=== PATIENT | female | born 1995 | race Caucasian/White ===

== ENCOUNTER 2016-07-18 20:13 | Emergency (ER) | payer OTHER ==
[~2016-07-18] VITALS: Ht 165.1 cm; Wt 130.9 kg
[~2016-07-18 20:13] MED LIST: DULO60CA44 PO; TOPI100T20 PO; TOPI50TA16 PO; TRAM-10 PO
[2016-07-18 20:15] VITALS: TEMP 37.2; Ht 165.1 cm; Wt 130.9 kg
--- NOTE | 2016-07-18 21:30 | EMERGENCY ROOM VISIT NOTE ---
History Report prepared by Lizet: Ambar Medina Under the Supervision of: Dr. Eloy Selby M.D. First contact with patient: 21:17 Chief Complaint: RECTAL BLEEDING Stated Complaint: RECENT RECTAL BLEEDING Nursing Triage Summary: Patient c/o of rectal bleeding, abdominal pain and shortness of breath today at 8 pm. Abdominal pain and shortness of breath resolved prior to arrival. Hx of kidney stones. History of Present Illness The patient is a 20 year old female who presents to the Emergency Room with complaints of rectal bleeding occurring 1 hour [employer]. The patient states that when having a bowel movement she states she saw bright red blood. The patient states that she then had SOB and right sided abdominal pain. She states she also was experiencing dizziness. She states that her SOB and abdominal pain have resolved prior to arriving at the ED. The patient states that she has no history of hemorrhoids and has never had rectal bleeding in the past. The patient states that it was concerning because before the bleeding began she was not experiencing any pain. The patient denies any chance of and states that she has normal menstrual periods. Source of History: patient Onset: 1 hour [employer] Position: other (rectal) Quality: other (bright red) Associated Symptoms: + SOB, + abdominal pain Note: Associated symptoms: dizziness. Review of Systems All systems have been listed, reviewed, and are negative other than those previously mentioned. Please see Additional Medical History Sheet. Past Medical & Surgical Medical Problems: (1) Depression (2) Kidney stones Family History Heart disease Hypertension Kidney disease Kidney stones Social History Smoking Status: Never Smoker Smokeless Tobacco Use: No Alcohol Use: none Drug Use: none Marital Status: single Occupation Status: student Current/Historical Medications Scheduled Control Pills ( Control Pills), 1 TAB PO DAILY Allergies Coded Allergies: No Known Allergies (Unverified , 03/25/12) Physical Exam Vital Signs Date Time Temp Pulse Resp B/P Pulse Ox O2 Delivery O2 Flow Rate FiO2 07/18/16 23:09 90 18 120/82 98 Room Air 07/18/16 22:08 68 20 125/80 98 Room Air 07/18/16 21:27 79 07/18/16 20:15 37.2 88 18 146/96 100 Room Air Physical Exam GENERAL: Patient awake, alert, oriented x 3. Patient follows commands. Patient does not appear toxic. Patient is adequately hydrated and well- nourished. SKIN: No erythema, pallor, cyanosis or rash HEENT: Normal head, pupils equal, reactive to light and accommodation. Ears normal. Oral cavity and posterior pharynx appear normal. Neck: Without adenopathy, no neck vein distention. LUNGS: Clear to auscultation. No wheezes, no rales, no rhonchi. HEART: No murmurs. No gallops. No rubs ABDOMEN: No masses, no rebound, no hepatomegaly or splenomegaly. Obese. EXTREMITIES: No signs of trauma. No pedal or pretibial edema. No calf or thigh tenderness. NEUROLOGIC: Cranial nerves II-XII within normal limits. No gross motor sensory function deficits. RECTAL: Done in the presence of a female nurse physician ophthalmologist. No hemorrhoids, no masses, no stool. Medical Decision & Procedures Laboratory Results 07/18/16 22:04 07/18/16 22:04 Test 07/18/16 22:04 Red Blood Count 4.34 M/uL (4.2-5.4) Mean Corpuscular Volume 83.6 fL (80-100) Mean Corpuscular Hemoglobin 28.6 pg (25-34) Mean Corpuscular Hemoglobin Concent 34.2 g/dl (32-36) RDW Standard Deviation 41.9 fL (36.4-46.3) RDW Coefficient of Variation 13.6 % (11.5-14.5) Mean Platelet Volume 9.7 fL (7.4-10.4) Anion Gap 9.0 mmol/L (3-11) Est Creatinine Clear Calc Drug Dose 197.8 ml/min Estimated GFR () > 150.0 Estimated GFR (Non- 129.8 BUN/Creatinine Ratio 15.5 (10-20) Calcium Level 8.5 mg/dl (8.5-10.1) Laboratory results as stated above per my review. ED Course 2117: Past medical records reviewed. The patient was evaluated in room A2. A complete history and physical examination was performed. 2154: Upon reevaluation, the patient appeared to have improvement of her symptoms. I discussed today's findings with her. She verbalized agreement of the treatment plan. The patient was discharged home. Medical Decision Nurses notes reviewed. Medical history sheet reviewed. Differential diagnosis includes but is not limited to: hemorrhoids external/internal, fissure, rectal bleed, anemia, hyperventilation. Labs were obtained. Please see above. The patient is not anemic. Rectal exam revealed no blood. I believe the patient did have some bright red blood which resulted in her becoming anxious and hyperventilated. The patient has been stable and asymptomatic while here in the ED. I believe that she can safely return home. She is to use some Preparation H if she has any problem in the rectal area. She is to follow-up with her family physician within the next 2 weeks. Impression Primary Impression: Rectal bleed Additional Impression: Anxiety Scribe Attestation The scribe's documentation has been prepared under my direction and personally reviewed by me in its entirety. I confirm that the note above accurately reflects all work, treatment, procedures, and medical decision making performed by me. Departure Information Dispostion Home / Self-Care Referrals No Doctor, Assigned (PCP) Forms HOME CARE DOCUMENTATION FORM, IMPORTANT VISIT INFORMATION, WORK / SCHOOL INSTRUCTIONS Patient Instructions My [facility] Additional Instructions Follow-up with your family physician within the next 2 weeks. You may use Preparation H or Anusol if you have any rectal pain. Problem Qualifiers
[2016-07-18] MEDS ORDERED: BCPILLS PO (21:49)
[2016-07-18 22:12] LABS: HEMATOCRIT 36.3 % (37-47); MEAN CELL VOLUME 83.6 fL (80-100); MEAN CORPUSCULAR HEMOGLOBIN 28.6 pg (25-34); MEAN CORPUSCULAR HGB CONC 34.2 g/dl (32-36); MEAN PLATELET VOLUME 9.7 fL (7.4-10.4); PLATELET COUNT 259 K/uL (130-400); RED BLOOD COUNT 4.34 M/uL (4.2-5.4); WHITE BLOOD COUNT 7.66 K/uL (4.8-10.8)
[2016-07-18 22:33] LABS: BLOOD UREA NITROGEN 10 mg/dl (7-18); BUN/CREATININE RATIO 15.5 (10-20); CALCIUM 8.5 mg/dl (8.5-10.1); CARBON DIOXIDE 24 mmol/L (21-32); CHLORIDE 108 mmol/L (98-107); CREATININE 0.62 mg/dl (0.60-1.20); GLUCOSE 78 mg/dl (70-99); POTASSIUM 4.1 mmol/L (3.5-5.1); SODIUM 141 mmol/L (136-145)
[2016-07-18 23:09] VITALS: BP 120/82; PULSE 90; O2SAT 98
== END 2016-07-18 23:09 | disposition home or self-care (01) ==
LOC: C.EDB 20:14 → C.EDA 23:09
DX: K62.5 Hemorrhage of anus and rectum (principal); F41.9 Anxiety disorder, unspecified; F32.9 Major depressive disorder, single episode, unspecified

== ENCOUNTER → 2016-08-01 | Outpatient (CLI) | payer OTHER ==
[~2016-08-01] MED LIST changes: +BCPILLS PO; -DULO60CA44 PO; -TOPI100T20 PO; -TOPI50TA16 PO; -TRAM-10 PO
== END | disposition home or self-care (01) ==
LOC: C.PAPS 09:07
PROVIDERS: ATTEND Obstetrics & Gynecology
DX: Z12.4 Encounter for screening for malignant neoplasm of cervix (principal); R87.610 Atypical squamous cells of undetermined significance on cytologic smear of cervix (ASC-US)

== ENCOUNTER → 2017-08-13 | Outpatient (CLI) | payer OTHER | END | disposition home or self-care (01) | LOC: C.PAPS 11:35 | PROVIDERS: ATTEND Physician Assistant | DX: Z12.4 Encounter for screening for malignant neoplasm of cervix (principal); R87.612 Low grade squamous intraepithelial lesion on cytologic smear of cervix (LGSIL) ==

== ENCOUNTER → 2017-08-13 | Outpatient (CLI) | payer OTHER | END | disposition home or self-care (01) | LOC: C.LABSPEC 17:36 | PROVIDERS: ATTEND Physician Assistant | DX: Z12.4 Encounter for screening for malignant neoplasm of cervix (principal) ==

== ENCOUNTER 2023-09-01 14:16 | Inpatient (IN) ==
--- NOTE | 2023-09-01 14:45 | Emergency Department Note ---
History of Present Illness General Chief complaint: Ankle Pain Stated complaint: ANKLE PAIN Time Seen by Provider: 09/01/23 14:33 History of Present Illness Maximum Pain Intensity: 6 This is a 28-year-old female that presents to the emergency department via ambulance with complaints of "right ankle pain". Patient states that just prior to arrival she was ambulating on a ramp, slipped and injured the right ankle. She denies any other areas of pain or injury beyond the right ankle. She notes open injury to the ankle. Per EMS and route she received 2 g of IV Ancef, 400 mL of IV normal saline, 2 mcg of fentanyl, and 4 mg of Zofran. Patient notes right ankle pain. No tingling. She notes perhaps a tiny bit of numbness but otherwise able to feel the entire foot and all toes. She rates her current pain as a 6/10. Patient denies chance of . Home Medications Medication Instructions Recorded Confirmed Type aripiprazole 2 mg tablet 2 mg PO HS 09/01/23 09/01/23 History atenolol 50 mg tablet 50 mg PO HS 09/01/23 09/01/23 History fluoxetine 20 mg capsule 60 mg PO HS 09/01/23 09/01/23 History lisinopril 5 mg tablet 5 mg PO HS 09/01/23 09/01/23 History Allergies Allergy/AdvReac Type Severity Reaction Status Date / Time No Known Allergies Allergy Unknown Verified 09/01/23 17:35 Past Med/Surg History Social History (Updated 09/01/23 @ 18:01 by Natali Quiroga PA-C) Smoking Status: Current some day smoker Tobacco Type: E-cigarettes / Vaping Hx Substance Use: No Feels Safe at Home: Yes Review of Systems A total of 10 systems reviewed and were otherwise negative Physical Exam Vital Signs Vital Signs - 24 hr 09/01/23 14:05 09/01/23 14:05 09/01/23 15:06 Temperature 36.6 C Temperature Source Oral Pulse Rate 90 90 Pulse Rate [Right Finger] Pulse Rhythm [Right Finger] Pulse Strength [Right Finger] Respiratory Rate 20 Respiratory Effort / Characteristics Non-Labored Spontaneous Non-Labored Spontaneous Respiratory Depth Normal Normal Respiratory Pattern Blood Pressure 148/61 H Blood Pressure [Right Arm] Blood Pressure Mean 90 Blood Pressure Mean [Right Arm] Blood Pressure Position [Right Arm] Pulse Oximetry 99 Oxygen Delivery Method Room Air Oxygen Flow Rate Sepsis New/Unexplained Change in Mental Status No Sepsis Action Taken by Nursing No Action Required End Tidal CO2 (18-54mmHg) 09/01/23 15:34 09/01/23 16:26 09/01/23 16:33 Temperature Temperature Source Pulse Rate 98 H 100 H Pulse Rate [Right Finger] 96 H Pulse Rhythm [Right Finger] Pulse Strength [Right Finger] Respiratory Rate 16 17 16 Respiratory Effort / Characteristics Non-Labored Non-Labored Spontaneous Non-Labored Spontaneous Normal for Patient Respiratory Depth Normal Normal Normal Respiratory Pattern Regular Regular Blood Pressure Blood Pressure [Right Arm] 136/68 154/91 H Blood Pressure Mean Blood Pressure Mean [Right Arm] 90 Blood Pressure Position [Right Arm] Pulse Oximetry 98 98 98 Oxygen Delivery Method Room Air Nasal Cannula Nasal Cannula Oxygen Flow Rate 4 4 Sepsis New/Unexplained Change in Mental Status Sepsis Action Taken by Nursing End Tidal CO2 (18-54mmHg) 34 34 09/01/23 16:34 09/01/23 16:35 09/01/23 16:39 Temperature Temperature Source Pulse Rate 102 H 106 H 102 H Pulse Rate [Right Finger] Pulse Rhythm [Right Finger] Pulse Strength [Right Finger] Respiratory Rate 16 16 16 Respiratory Effort / Characteristics Non-Labored Spontaneous Non-Labored Spontaneous Non-Labored Spontaneous Respiratory Depth Normal Normal Normal Respiratory Pattern Regular Regular Regular Blood Pressure Blood Pressure [Right Arm] 150/87 H Blood Pressure Mean Blood Pressure Mean [Right Arm] Blood Pressure Position [Right Arm] Pulse Oximetry 98 98 98 Oxygen Delivery Method Nasal Cannula Nasal Cannula Nasal Cannula Oxygen Flow Rate 4 4 4 Sepsis New/Unexplained Change in Mental Status Sepsis Action Taken by Nursing End Tidal CO2 (18-54mmHg) 36 36 36 09/01/23 16:40 09/01/23 16:45 09/01/23 16:50 Temperature Temperature Source Pulse Rate 99 H 100 H 97 H Pulse Rate [Right Finger] Pulse Rhythm [Right Finger] Pulse Strength [Right Finger] Respiratory Rate 16 16 16 Respiratory Effort / Characteristics Non-Labored Spontaneous Non-Labored Spontaneous Non-Labored Spontaneous Respiratory Depth Normal Normal Normal Respiratory Pattern Regular Regular Regular Blood Pressure Blood Pressure [Right Arm] 145/93 H 179/77 H 176/78 H Blood Pressure Mean Blood Pressure Mean [Right Arm] Blood Pressure Position [Right Arm] Pulse Oximetry 98 99 99 Oxygen Delivery Method Nasal Cannula Nasal Cannula Nasal Cannula Oxygen Flow Rate 4 4 4 Sepsis New/Unexplained Change in Mental Status Sepsis Action Taken by Nursing End Tidal CO2 (18-54mmHg) 35 36 32 09/01/23 17:09 09/01/23 17:30 09/01/23 17:47 Temperature Temperature Source Pulse Rate 98 H 102 H Pulse Rate [Right Finger] 102 H Pulse Rhythm [Right Finger] Pulse Strength [Right Finger] Respiratory Rate 16 16 16 Respiratory Effort / Characteristics Non-Labored Spontaneous Non-Labored Spontaneous Non-Labored Spontaneous Respiratory Depth Normal Normal Normal Respiratory Pattern Regular Regular Blood Pressure Blood Pressure [Right Arm] 145/77 H 142/82 H 143/94 H Blood Pressure Mean Blood Pressure Mean [Right Arm] 110 Blood Pressure Position [Right Arm] Pulse Oximetry 99 99 95 Oxygen Delivery Method Room Air Room Air Room Air Oxygen Flow Rate 0 0 Sepsis New/Unexplained Change in Mental Status Sepsis Action Taken by Nursing End Tidal CO2 (18-54mmHg) 09/01/23 18:23 09/01/23 18:25 Temperature 37.9 C H Temperature Source Oral Pulse Rate Pulse Rate [Right Finger] 111 H Pulse Rhythm [Right Finger] Regular Pulse Strength [Right Finger] Normal Respiratory Rate 26 H Respiratory Effort / Characteristics Non-Labored Spontaneous Respiratory Depth Normal Respiratory Pattern Regular Blood Pressure Blood Pressure [Right Arm] 135/82 Blood Pressure Mean Blood Pressure Mean [Right Arm] 99 Blood Pressure Position [Right Arm] Semi-fowlers Pulse Oximetry 97 Oxygen Delivery Method Room Air Room Air Oxygen Flow Rate Sepsis New/Unexplained Change in Mental Status Sepsis Action Taken by Nursing End Tidal CO2 (18-54mmHg) VITAL SIGNS - Vital signs and nursing notes were reviewed. Stable and afebrile. GENERAL -28-year-old female appearing her stated age who is in no acute distress. Communicates well with provider and answers questions appropriately. SKIN -there is a break in the integument to the right medial ankle region measuring approximately 3 cm x 2 cm consistent with open fracture. Small amount of bleeding noted. There is right ankle deformity with the distal tibial region medially displaced with the right foot being laterally displaced. HEAD - NC/AT. EYES - PERRL with EOMI bilaterally. no hyphema. No subconjunctival hemorrhage EARS - No deformities of external structures noted on gross examination bilaterally. No hemotympanum. NOSE - Midline and without cyanosis. No epistaxis or purulent drainage noted. MOUTH/OROPHARYNX - Without perioral cyanosis. NECK - Neck with FROM. No nuchal rigidity. LUNGS - CTA CARDIAC - RRR EXTREMITIES - No clubbing or peripheral cyanosis. No pretibial edema. Skin as above with associated open fracture and deformity of the right ankle. The right dorsalis pedis pulse is within normal limits. Cap refill of all toes of the right foot within normal limits. Patient able to actively flex and extend all toes of the right foot. NEUROLOGIC - Cranial nerves II through XII grossly intact. Patient is sensory intact to light touch throughout the right foot and all toes. No neurovascular deficits. PSYCH -alert, oriented and pleasant on exam Course Administered Medications Discontinued Medications Diphtheria/Pertussis/Tetanus Vacc (Diphther/Tetan/Pertus Vaccine (Tdap, Adol/Adult) 0.5ml) 0.5 ml IM .ONCE ONE Stop: 09/01/23 14:56 Last Admin: 09/01/23 15:05 Dose: 0.5 ml Documented By: CHINO Fentanyl Citrate (Fentanyl Citrate Pf 100 Mcg/2 Ml Vial) 50 mcg IV NOW STA Stop: 09/01/23 14:38 Last Admin: 09/01/23 15:06 Dose: 50 mcg Documented By: CHINO Fentanyl Citrate (Fentanyl Citrate Pf 100 Mcg/2 Ml Vial) 100 mcg IV NOW ONE Stop: 09/01/23 16:46 Last Admin: 09/01/23 16:39 Dose: 100 mcg Documented By: NIKHIL Fentanyl Citrate (Fentanyl Citrate Pf 100 Mcg/2 Ml Vial) 50 mcg IV NOW STA Stop: 09/01/23 17:56 Last Admin: 09/01/23 18:02 Dose: 50 mcg Documented By: NIKHIL Propofol (Propofol Iv Emulsion 10 Mg/Ml 20 Ml Vial) Confirm Administered Dose 200 mg IV .STK-MED ONE Stop: 09/01/23 16:21 Last Admin: 09/01/23 17:20 Dose: Not Given Documented By: NIKHIL Propofol (Propofol Iv Emulsion 10 Mg/Ml 20 Ml Vial) Confirm Administered Dose 200 mg IV .STK-MED ONE Stop: 09/01/23 16:35 Last Admin: 09/01/23 16:33 Dose: 130 mg Documented By: NIKHIL Co-signed By: EDU Medical Decision Making Laboratory Data 09/01/23 15:10 09/01/23 15:10 Lab Results 09/01/23 09/01/23 Range/Units 15:10 16:05 WBC 11.79 H (4.8-10.8) K/ul RBC 4.32 (4.20-5.40) M/uL Hgb 11.5 L (12.0-16.0) g/dl Hct 36.4 L (37.0-47.0) % MCV 84.3 (80.0-100.0) fL MCH 26.6 (25.0-34.0) pg MCHC 31.6 L (32.0-36.0) g/dL RDW Std Deviation 44.3 (36.4-46.3) fL RDW Coeff of [place] 14.6 H (11.5-14.5) % Plt Count 298 (130-400) K/uL MPV 9.2 L (9.4-12.4) fL Immature Gran % (Auto) 0.4 % Neut % (Auto) 71.4 % Lymph % (Auto) 19.8 % Eagle % (Auto) 6.4 % Eos % (Auto) 1.8 % Baso % (Auto) 0.2 % Neut # (Auto) 8.43 H (1.40-6.50) K/uL Lymph # (Auto) 2.33 (1.20-3.40) K/uL Eagle # (Auto) 0.75 H (0.11-0.59) K/uL Eos # (Auto) 0.21 (0.00-0.50) K/uL Baso # (Auto) 0.02 (0.00-0.20) K/uL Immature Gran # (Auto) 0.05 (0.01-0.20) K/uL PT 10.9 (9.0-12.0) Seconds INR 1.0 (0.9-1.1) APTT 25 (21-31) Seconds PTT Ratio 0.9 Sodium 137 (136-145) mmol/L Potassium 3.9 (3.5-5.1) mmol/L Chloride 104 (98-107) mmol/L Carbon Dioxide 26 (21-32) mmol/L Anion Gap 7 (3-11) BUN 8 (6-23) mg/dl Creatinine 0.52 L (0.6-1.2) mg/dl Est Cr Clr Drug Dosing 297.4 ml/min Est GFR ( Amer) > 150.0 ml/min Est GFR (Non-Af Amer) 130.0 ml/min BUN/Creatinine Ratio 15.4 (10-20) Glucose 100 H (70-99(Fasting)) mg/dl Calcium 8.0 L (8.6-10.3) mg/dl Total Bilirubin 0.4 (0.2-1.0) mg/dl AST 19 (13-39) U/L ALT 25 (7-52) U/L Alkaline Phosphatase 86 (34-104) U/L Total Protein 6.9 (6.0-8.3) gm/dl Albumin 3.5 (3.4-5.0) gm/dl Globulin 3.4 (2.5-4.0) gm/dl Albumin/Globulin Ratio 1.0 (0.9-2) HCG, Qual Negative (Negative) Imaging Data Radiologist's Impression: Ankle X-Ray 09/01/23 14:32 XR ankle RT 2V CLINICAL HISTORY: Right ankle trauma. COMPARISON: None FINDINGS: There is an acute displaced fracture of the distal shaft of the right fibula. Fracture is 6.2 cm proximal to the fibular tip. The fibular fracture is displaced 1.4 cm and angulated. Note is made of acute displaced fractures of the posterior and medial malleoli of the right ankle. Talonavicular joint is disrupted. Talar dome is intact. No calcaneal fracture is identified. IMPRESSION: Right ankle fracture/dislocation deformity, as described above. Displaced posterior and medial malleolar fractures and distal diaphyseal fibular fracture with disruption of the tibiotalar joint. ACT 112: Negative or not required by law. Electronically signed by: Pelon Gottlieb M.D. 09/01/2023 3:22 PM Tibia/Fibula X-Ray 09/01/23 14:36 XR tibia fibula RT 2V CLINICAL HISTORY: R lower leg injury, open fracture suspected TECHNIQUE: 2 radiographic views of the right leg were obtained. Comparison: None available at the time of this dictation. FINDINGS: A displaced fracture of the distal fibular shaft with angulation. There is a fracture of the posterior malleolus. Dislocation of the ankle joint is partially seen. Soft tissue swelling is seen. IMPRESSION: Fracture of the distal femoral shaft above the tibiofibular syndesmosis as well as of the posterior malleolus. Please see dedicated ankle radiographs for detailed findings of ankle fractures. ACT 112: Negative or not required by law. Electronically signed by: Francisco Fatima M.D. 09/01/2023 3:20 PM Ankle X-Ray 09/01/23 16:36 XR ankle RT 2V CLINICAL HISTORY: post reduction COMPARISON: Right ankle radiographs performed earlier today. FINDINGS: Overlying cast is noted. Alignment of the distal diaphyseal fracture of the right fibula has improved. Alignment of the distal right tibial fractures has also significantly improved. Tibiotalar alignment has improved. There is residual medial ankle mortise widening. IMPRESSION: Significant improvement in alignment of the right ankle fracture/dislocation post reduction. ACT 112: Negative or not required by law. Electronically signed by: Pelon Gottlieb M.D. 09/01/2023 5:[address] 09/01/23 16:44 CT ankle RT wo con CLINICAL HISTORY: R ankle open fracture TECHNIQUE: Multidetector row helical CT of the ankle radiographs 09/01/2023 was performed without intravenous contrast. Coronal and sagittal reformations were obtained. Automated dose lowering techniques and/or adjustment according to patient size were utilized for this examination. CT DOSE: 778.62 mGy.cm Comparison: Comparison is made to abdomen radiograph 09/01/2023 FINDINGS: Redemonstration of minimally displaced fibular fracture which is mildly comminuted, as well as comminuted fractures of the distal tibia involving the posterior medial malleolus. The joint spaces are maintained. No joint effusion is seen. Soft tissue swelling is seen with subcutaneous gas. IMPRESSION: Near-anatomic alignment of the comminuted trimalleolar fracture as. Subcutaneous gas is seen compatible with open fractures. ACT 112: Negative or not required by law. Electronically signed by: Francisco Fatima M.D. 09/01/2023 5:45 PM [facility] Narrative Patient was seen and evaluated as above in room A03. Review was performed of triage nursing notes and vital signs. After obtaining a thorough history and physical examination the above work up was performed. Patient presents to us today via EMS for assessment of isolated injury to the right ankle. On exam she has an open fracture to the right lower extremity. She is neurovascularly intact on assessment without deficit. Options of care were discussed with the patient. IV access was established. Labs were drawn. The patient did receive IV analgesia. Tetanus vaccine was updated as it appears to be out of date. It is important note that per review of the EMR the patient prehospital received 2000 mg of IV Ancef, 400 mL of normal saline, 200 mcg of IV fentanyl and 4 mg IV Zofran. Therefore additional IV antibiotics was not ordered noting the recent administration just prior to arrival here today. Stat x-ray of the right lower extremity was ordered. Per my interpretation there is a displaced fracture of the tibia and fibula. There is dislocation of the right ankle joint. Noting the open nature with overlying organic debris/dirt on the leg I did ask staff to page/reach out to the on-call orthopedist, Dr. Cardenas. While awaiting callback, I did reach out to the operating room as well as to the orthopedic office. I then spoke with Dr. Cardenas at 4:13 PM. He did ask that we reduce the ankle joint here and then obtain a CT. Please refer to documentation from ED attending physician regarding sedation. Appropriate paperwork regarding consent was completed. After obtaining consent, patient was sedated and the right lower extremity was cleansed with sterile saline. Any visible organic debris/dirt was removed from the leg prior to reduction. The wound was then copiously irrigated with sterile saline. Area was then dried with sterile gauze and I provided gentle longitudinal traction to the right foot/ankle region which easily reduced the deformity. Sterile gauze was utilized to clean the remainder of the extremity and Xeroform was applied to the wounds followed by Ortho-Glass splint. Patient was neurovascularly intact post splint placement and reduction. Cap refill within normal limits of the affected extremity as well as dorsalis pedis pulse was within normal limits post reduction. Postreduction film reveals satisfactory reduction pending CT scan. Patient was then sent for CT imaging. She will be admitted for further evaluation and management. Please refer to further documentation regarding her stay. Case was discussed with the attending physician. GCS: 15 In the evaluation and treatment of this patient the following differential diagnoses were entertained: Fracture, dislocation, subluxation, contusion, sprain, strain, among others Impression & Plan Open fracture dislocation of right ankle Discharge Plan Visit Data Chief Complaint: Ankle Pain Stated Complaint: ANKLE PAIN ED Provider: Dg Zeng ED Midlevel Provider: Narinder Wynne Discharge Problem: Open fracture dislocation of right ankle Patient Disposition: Admitted As Inpatient Condition: Good Discharge Instructions Interventions: ED Discharge Assessment Last Done: 09/01/23 18:23
[2023-09-01] MEDS: DIPHTHER/TETAN/PERTUS Vaccine (Tdap, Adol/Adult) 0.5mL IM ONE (15:05)
[2023-09-01] MEDS: fentaNYL citrate PF 100 MCG/2 ML VIAL IV STA ×2 (15:06→18:02)
--- NOTE | 2023-09-01 15:21 | XRay Report ---
XR tibia fibula RT 2V CLINICAL HISTORY: R lower leg injury, open fracture suspected TECHNIQUE: 2 radiographic views of the right leg were obtained. Comparison: None available at the time of this dictation. FINDINGS: A displaced fracture of the distal fibular shaft with angulation. There is a fracture of the posterio r malleolus. Dislocation of the ankle joint is partially seen. Soft tissue swelling is seen. IMPRESSION: Fracture of the distal femoral shaft above the tibiofibular syndesmosis as well as of the posterior m alleolus. Please see dedicated ankle radiographs for detailed findings of ankle fractures. ACT 112: Negative or not required by law. Electronically signed by: Francisco Fatima M.D. 09/01/2023 3:20 PM
--- NOTE | 2023-09-01 15:25 | XRay Report ---
XR ankle RT 2V CLINICAL HISTORY: Right ankle trauma. COMPARISON: None FINDINGS: There is an acute displaced fracture of the distal shaft of the right fibula. Fracture is 6.2 cm proximal to the fibular tip. The fibular fracture is displaced 1.4 cm and angulated. Note is m april of acute displaced fractures of the posterior and medial malleoli of the right ankle. Talonavicul ar joint is disrupted. Talar dome is intact. No calcaneal fracture is identified. IMPRESSION: Right ankle fracture/dislocation deformity, as described above. Displaced posterior and m edial malleolar fractures and distal diaphyseal fibular fracture with disruption of the tibiotalar filomena int. ACT 112: Negative or not required by law. Electronically signed by: Pelon Gottlieb M.D. 09/01/2023 3:22 PM
[2023-09-01 15:26] LABS: Basophils # (auto) 0.02 K/uL (0.00-0.20); Basophils % (auto) 0.2 %; Eosinophils # (auto) 0.21 K/uL (0.00-0.50); Eosinophils % (auto) 1.8 %; Hematocrit (blood only) 36.4 % (37.0-47.0); Hemoglobin 11.5 g/dl (12.0-16.0); Immature Granulocytes # (auto) 0.05 K/uL (0.01-0.20); Immature Granulocytes % (auto) 0.4 %; Lymphocytes # (auto) 2.33 K/uL (1.20-3.40); Lymphocytes % (auto) 19.8 %; Mean Corpuscular Hemoglobin 26.6 pg (25.0-34.0); Mean Corpuscular Hgb Conc 31.6 g/dL (32.0-36.0); Mean Corpuscular Volume 84.3 fL (80.0-100.0); Mean Platelet Volume 9.2 fL (9.4-12.4); Monocytes # (auto) 0.75 K/uL (0.11-0.59); Monocytes % (auto) 6.4 %; Neutrophils # (auto) 8.43 K/uL (1.40-6.50); Neutrophils % (auto) 71.4 %; Platelet Count 298 K/uL (130-400); RDW Coefficient of Variation 14.6 % (11.5-14.5); RDW Standard Deviation 44.3 fL (36.4-46.3); Red Blood Count 4.32 M/uL (4.20-5.40); White Blood Count 11.79 K/ul (4.8-10.8)
[2023-09-01 15:46] LABS: Alanine Aminotransferase 25 U/L (7-52); Albumin Level 3.5 gm/dl (3.4-5.0); Alkaline Phosphatase 86 U/L (34-104); Anion Gap 7 (3-11); Aspartate Aminotransferase 19 U/L (13-39); BUN Creatinine Ratio 15.4 (10-20); Bilirubin,Total 0.4 mg/dl (0.2-1.0); Blood Urea Nitrogen 8 mg/dl (6-23); Carbon Dioxide 26 mmol/L (21-32); Chloride 104 mmol/L (98-107); Creatinine Clr Calc Pharmacy 297.4 ml/min; Est GFR (African American) > 150.0 ml/min; Globulin 3.4 gm/dl (2.5-4.0); Glucose 100 mg/dl (70-99(Fasting)); Potassium 3.9 mmol/L (3.5-5.1); Sodium 137 mmol/L (136-145); Total Protein 6.9 gm/dl (6.0-8.3)
[2023-09-01 16:08] LABS: Partial Thromboplastin Ratio 0.9; Partial Thromboplastin Time 25 Seconds (21-31); Prothrombin Time 10.9 Seconds (9.0-12.0)
[2023-09-01 16:33] LABS: Pregnancy Test, Serum Negative (Negative)
[2023-09-01] MEDS: PROPOFOL IV EMULSION 10 MG/ML 20 ML VIAL IV ONE ×2 (16:33→17:20)
[2023-09-01] MEDS: fentaNYL citrate PF 100 MCG/2 ML VIAL IV ONE (16:39)
--- NOTE | 2023-09-01 16:50 | Orthopedic Consultation ---
Date of Consultation September 01, 2023 Assessment & Plan (1) Open fracture of tibia and fibula: Patient was found to have right open tib-fib fracture. She was irrigated and reduced in the OR under conscious sedation. A posterior splint with sugar-tong was applied to the right lower extremity. She was instructed to be nonweightbearing. She was sent for CT scan of the right ankle for further evaluation and decision making with Dr. Cardenas. Most likely will need irrigation, debridement, open reduction internal fixation of a right tib-fib fracture in the near future. If appropriate after CT scan will admit to [facility]. Present on Admission?: Yes Supervising Physician Co-Signing Physician Notes I Dr. Cardenas, saw and examined the patient and agree with the above findings and plan of care I developed and discussed with my PA. Continue NPO. Discussed risks and benefits of I&D, ORIF Right ankle, informed consent signed. Plan OR tonight due to open fracture. Will admit after with 48 hrs IV Abx. History of Present Illness Reason for Consultation: Right ankle tib/fib open fracture Requesting Physician: Janki Cardenas MD History of Present Illness Marylin was brought to the emergency room after sustaining a right ankle injury. She was found to have a right open ankle tib-fib fracture dislocation. Dr. Cardenas asked for me to start seeing in the ED as he was scrubbed in the OR. Dr. Cardenas asked the ED to Irrigate the wound and reduce the ankle, splint her, then obtain a CT. As I arrived into her room she was undergoing conscious sedation for a closed reduction, irrigation and splinting in the ED. I assisted with irrigation of the wound and splinting. Denies any other injuries. Denies any previous right ankle problems. Denies any numbness or tingling. Severe pain with any type of movement of the right ankle. Abrasions across superficial patel area noted. Prereduction it was reported that her pulses were intact. Allergies Allergy/AdvReac Type Severity Reaction Status Date / Time No Known Allergies Allergy Unknown Verified 09/01/23 17:35 Home Medications Medication Instructions Recorded Confirmed Type aripiprazole 2 mg tablet 2 mg PO HS 09/01/23 09/01/23 History atenolol 50 mg tablet 50 mg PO HS 09/01/23 09/01/23 History fluoxetine 20 mg capsule 60 mg PO HS 09/01/23 09/01/23 History lisinopril 5 mg tablet 5 mg PO HS 09/01/23 09/01/23 History Patient History Social History (Updated 09/01/23 @ 18:01 by Natali Quiroga PA-C) Smoking Status: Current some day smoker Tobacco Type: E-cigarettes / Vaping Hx Substance Use: No Feels Safe at Home: Yes Review of Systems Review of Systems: as per HPI Physical Exam Musculoskeletal: Exam of her right lower extremity: Her right foot is externally rotated. Obvious open wound of the medial aspect of the ankle. Wound is about 4 cm x 3 cm with fatty tissue present. There is dirt and grass in the wound itself. This was cleansed with some sterile saline and irrigated under conscious sedation. Closed reduction was performed by Narinder Brunson PA-C. Distal pulses remained intact. Obvious deformity noted prior to reduction. Postreduction she was able to wiggle her toes, improved pain. Short leg posterior splint and coaptation splint was applied to the right lower extremity. Results & Data Vital Signs (Past 12 Hours) Vital Signs Temp Pulse Pulse Resp BP BP Pulse Ox 09/01/23 16:26 98 H 17 154/91 H 98 09/01/23 15:34 96 H 16 136/68 98 09/01/23 15:06 90 09/01/23 14:05 36.6 C 90 20 148/61 H 99 O2 Del Method O2 Flow Rate 09/01/23 16:26 Nasal Cannula 4 09/01/23 15:34 Room Air 09/01/23 15:06 09/01/23 14:05 Room Air Laboratory Results 09/01/23 09/01/23 Range/Units 16:05 15:10 WBC 11.79 H (4.8-10.8) K/ul RBC 4.32 (4.20-5.40) M/uL Hgb 11.5 L (12.0-16.0) g/dl Hct 36.4 L (37.0-47.0) % MCV 84.3 (80.0-100.0) fL MCH 26.6 (25.0-34.0) pg MCHC 31.6 L (32.0-36.0) g/dL RDW Std Deviation 44.3 (36.4-46.3) fL RDW Coeff of [place] 14.6 H (11.5-14.5) % Plt Count 298 (130-400) K/uL MPV 9.2 L (9.4-12.4) fL Immature Gran % (Auto) 0.4 % Neut % (Auto) 71.4 % Lymph % (Auto) 19.8 % [place] % (Auto) 6.4 % Eos % (Auto) 1.8 % Baso % (Auto) 0.2 % Neut # (Auto) 8.43 H (1.40-6.50) K/uL Lymph # (Auto) 2.33 (1.20-3.40) K/uL [place] # (Auto) 0.75 H (0.11-0.59) K/uL Eos # (Auto) 0.21 (0.00-0.50) K/uL Baso # (Auto) 0.02 (0.00-0.20) K/uL Immature Gran # (Auto) 0.05 (0.01-0.20) K/uL PT 10.9 (9.0-12.0) Seconds INR 1.0 (0.9-1.1) APTT 25 (21-31) Seconds PTT Ratio 0.9 Sodium 137 (136-145) mmol/L Potassium 3.9 (3.5-5.1) mmol/L Chloride 104 (98-107) mmol/L Carbon Dioxide 26 (21-32) mmol/L Anion Gap 7 (3-11) BUN 8 (6-23) mg/dl Creatinine 0.52 L (0.6-1.2) mg/dl Est Cr Clr Drug Dosing 297.4 ml/min Est GFR ( Amer) > 150.0 ml/min Est GFR (Non-Af Amer) 130.0 ml/min BUN/Creatinine Ratio 15.4 (10-20) Glucose 100 H (70-99(Fasting)) mg/dl Calcium 8.0 L (8.6-10.3) mg/dl Total Bilirubin 0.4 (0.2-1.0) mg/dl AST 19 (13-39) U/L ALT 25 (7-52) U/L Alkaline Phosphatase 86 (34-104) U/L Total Protein 6.9 (6.0-8.3) gm/dl Albumin 3.5 (3.4-5.0) gm/dl Globulin 3.4 (2.5-4.0) gm/dl Albumin/Globulin Ratio 1.0 (0.9-2) HCG, Qual Negative (Negative) Diagnostic Findings XR tibia fibula RT 2V CLINICAL HISTORY: R lower leg injury, open fracture suspected TECHNIQUE: 2 radiographic views of the right leg were obtained. Comparison: None available at the time of this dictation. FINDINGS: A displaced fracture of the distal fibular shaft with angulation. There is a fracture of the posterior malleolus. Dislocation of the ankle joint is partially seen. Soft tissue swelling is seen. IMPRESSION: Fracture of the distal femoral shaft above the tibiofibular syndesmosis as well as of the posterior malleolus. Please see dedicated ankle radiographs for de tailed findings of ankle fractures. XR ankle RT 2V CLINICAL HISTORY: Right ankle trauma. COMPARISON: None FINDINGS: There is an acute displaced fracture of the distal shaft of the right fibula. Fracture is 6.2 cm proximal to the fibular tip. The fibular fracture is displaced 1.4 cm and angulated. Note is made of acute displaced fractures of the posterior and medial malleoli of the right ankle. Talonavicular joint is disrupted. Talar dome is intact. No calcaneal fracture is identified. IMPRESSION: Right ankle fracture/dislocation deformity, as described above. D isplaced posterior and medial malleolar fractures and distal diaphyseal fibular fracture with disruption of the tibiotalar joint.
--- NOTE | 2023-09-01 17:04 | XRay Report ---
XR ankle RT 2V CLINICAL HISTORY: post reduction COMPARISON: Right ankle radiographs performed earlier today. FINDINGS: Overlying cast is noted. Alignment of the distal diaphyseal fracture of the right fibula h as improved. Alignment of the distal right tibial fractures has also significantly improved. Tibiotal ar alignment has improved. There is residual medial ankle mortise widening. IMPRESSION: Significant improvement in alignment of the right ankle fracture/dislocation post reducti on. ACT 112: Negative or not required by law. Electronically signed by: Pelon Gottlieb M.D. 09/01/2023 5:03 PM
--- NOTE | 2023-09-01 17:10 | Emergency Department Note ---
Pre Sedation Assessment Vital Signs Temp Pulse Pulse Resp BP BP Pulse Ox 09/01/23 16:39 102 H 16 98 09/01/23 16:35 106 H 16 150/87 H 98 09/01/23 16:34 102 H 16 98 09/01/23 16:33 100 H 16 98 09/01/23 16:26 98 H 17 154/91 H 98 09/01/23 15:34 96 H 16 136/68 98 09/01/23 15:06 90 09/01/23 14:05 36.6 C 90 20 148/61 H 99 O2 Del Method O2 Flow Rate 09/01/23 16:39 Nasal Cannula 4 09/01/23 16:35 Nasal Cannula 4 09/01/23 16:34 Nasal Cannula 4 09/01/23 16:33 Nasal Cannula 4 09/01/23 16:26 Nasal Cannula 4 09/01/23 15:34 Room Air 09/01/23 15:06 09/01/23 14:05 Room Air Cardiovascular RRR, no murmur, no edema Respiratory normal respiratory effort, lungs clear to auscultation Pre-Sedation Airway Assessment Smoking Status: Current some day smoker Hx Sleep Apnea: Yes Short, Thick Neck: Yes Thyromental Distance: < 3.5 Finger Breadths Oral Cavity: + WNL Mallampati Class: II ASA: ASA2 NPO Status Date of Last Intake of Fluids: 09/01/23 Time of Last Intake of Fluids: 07:00 Last Oral Intake of Fluids Comment: josh Notes The planned sedation has been discussed with the patient. Informed Consent was obtained. I have identified the patient, determined the appropriateness of sedation and have assessed the patient immediately prior to the procedure. All medicine(s) and interventions are by my order.
--- NOTE | 2023-09-01 17:12 | Emergency Department Note ---
ED Visit Note Procedural Sedation Indication: reduction R ankle. Total time: 15 minutes. Written consent was obtained after the risks and benefits were explained to the patient, including, but not limited to aspiration, allergic reaction, breathing difficulties, cardiac complications, vomiting, pain, event recall, bleeding, and/or infection. Pre-sedation examination and paperwork completed. The patient was on 100% oxygen via NRB prior to the procedure. Continous end tidal CO2 monitoring, pulse oximetry, and cardiac monitoring were utilized. Suction, airway equipment, medications, respiratory equipment, and appropriate personnel were prepared prior to the initiation of the procedure. A time out was taken. Sedation was achieved utilizing 130 mg of propofol. After I observed the patient had reached the appropriate level of sedation the main procedure was performed without complication. Sedation was discontinued and the monitoring continued. The patient recovered quickly from the effects of the medication without complication or adverse event. .
[2023-09-01] MEDS ORDERED: ATROPINE SULFATE 0.1 MG/ML 10ML SYR IV PRN (17:40)
[2023-09-01] MEDS ORDERED: ONDANSETRON INJ 2 MG/ML 2 ML VIAL IV PRN (17:40)
[2023-09-01] MEDS ORDERED: ePHEDrine sulfate 50 MG/ML AMP IV PRN (17:40)
[2023-09-01] MEDS ORDERED: HYDROmorphone INJ 2 MG/ML SYR/VIAL IV PRN (17:40)
[2023-09-01] MEDS ORDERED: fentaNYL citrate PF 100 MCG/2 ML VIAL IV PRN (17:40)
--- NOTE | 2023-09-01 17:40 | Anesthesiology Consultation ---
Date of Service September 01, 2023 Assessment & Plan (1) Encounter for pre-operative examination: Chart Review Chart Review: Acceptable Risk for Surgery and Patient NOT seen in Pre Admission Testing Consults Requested none History Height/Weight Height: 5 ft 7 in Weight: 200 kg Allergies Allergy/AdvReac Type Severity Reaction Status Date / Time No Known Allergies Allergy Unknown Verified 09/01/23 17:35 Medications Home Medications Medication Instructions Recorded Confirmed Last Taken aripiprazole 2 mg tablet 2 mg PO HS 09/01/23 09/01/23 08/31/23 atenolol 50 mg tablet 50 mg PO HS 09/01/23 09/01/23 08/31/23 fluoxetine 20 mg capsule 60 mg PO HS 09/01/23 09/01/23 08/31/23 lisinopril 5 mg tablet 5 mg PO HS 09/01/23 09/01/23 08/31/23 Social History Smoking Status: Current some day smoker Hx Substance Use: No Physical Exam Vital Signs Last Vital Signs Temp 97.9 F 09/01/23 14:05 Pulse 98 H 09/01/23 17:09 Resp 16 09/01/23 17:09 BP 145/77 H 09/01/23 17:09 Pulse Ox 99 09/01/23 17:09 O2 Del Method Room Air 09/01/23 17:09 O2 Flow Rate 0 09/01/23 17:09 Testing Laboratory Results 09/01/23 15:10 09/01/23 15:10 PT 10.9 Seconds (9.0-12.0) 09/01/23 15:10 INR 1.0 (0.9-1.1) 09/01/23 15:10 APTT 25 Seconds (21-31) 09/01/23 15:10
--- NOTE | 2023-09-01 17:47 | CT Scan Report ---
CT ankle RT wo con CLINICAL HISTORY: R ankle open fracture TECHNIQUE: Multidetector row helical CT of the ankle radiographs 09/01/2023 was performed without intra venous contrast. Coronal and sagittal reformations were obtained. Automated dose lowering techniques and/or adjustment according to patient size were utilized for this examination. CT DOSE: 778.62 mGy.cm Comparison: Comparison is made to abdomen radiograph 09/01/2023 FINDINGS: Redemonstration of minimally displaced fibular fracture which is mildly comminuted, as well as commin uted fractures of the distal tibia involving the posterior medial malleolus. The joint spaces are linda ntained. No joint effusion is seen. Soft tissue swelling is seen with subcutaneous gas. IMPRESSION: Near-anatomic alignment of the comminuted trimalleolar fracture as. Subcutaneous gas is seen compatib le with open fractures. ACT 112: Negative or not required by law. Electronically signed by: Francisco Fatima M.D. 09/01/2023 5:45 PM
[2023-09-01] MEDS ORDERED: ROPIVACAINE 0.5% 5 MG/ML 30 ML VIAL ONE (17:53)
[2023-09-01] MEDS ORDERED: MIDAZOLAM HCL 1 MG/ML 2ML VIAL ONE (17:55)
[2023-09-01] MEDS ORDERED: fentaNYL citrate PF 100 MCG/2 ML VIAL ONE ×3 (17:55→22:10)
[2023-09-01] MEDS ORDERED: GLYCOPYRROLATE 0.2 MG/ML VIAL ONE (17:55)
[2023-09-01] MEDS ORDERED: PROPOFOL IV EMULSION 10 MG/ML 20 ML VIAL IV ONE (17:55)
[2023-09-01] MEDS ORDERED: ROCURONIUM BROMIDE 10 MG/ML 5 ML VIAL IV ONE (17:55)
[2023-09-01] MEDS ORDERED: DEXAMETHASONE SOD INJ 4 MG/ML VIAL ONE (17:55)
[2023-09-01] MEDS ORDERED: LIDOCAINE 2% 2 ML VIAL/AMP(20MG/ML) INFIL ONE (17:55)
[2023-09-01] MEDS ORDERED: ONDANSETRON INJ 2 MG/ML 2 ML VIAL ONE ×2 (17:55→22:12)
--- NOTE | 2023-09-01 18:03 | History & Physical Report ---
Date of Service September 01, 2023 Assessment & Plan (1) Open fracture of tibia and fibula: Plan: Patient was found to have right open tib-fib fracture. She was irrigated and reduced in the OR under conscious sedation. A posterior splint with sugar-tong was applied to the right lower extremity. She was instructed to be nonweightbearing. She was sent for CT scan of the right ankle for further evaluation and decision making with Dr. Cardenas. Plan for irrigation, debridement, open reduction internal fixation of a right ankle fracture this evening, due to open fracture. Risks, benefits, and complications of the surgery were explained to the patient include but are not limited to infection, pain, bleeding, scarring, nerve and blood vessel damage, wound problems, weakness, stiffness, incomplete relief of symptoms, hardware failure, fracture, malunion, nonunion, blood clots, embolisms, heart attack, stroke and . All questions were answered and informed consent was obtained. Consent on her chart. She has been given IV Ancef for treatment of her open fracture. She is currently NPO. She will be admitted to [facility] postoperatively for IV antibiotics, physical therapy and Occupational Therapy and case management. She understands and agrees with the plan. All questions were answered. History of Present Illness Chief Complaint: Right ankle fracture dislocation, open wound Primary Care Provider: NO PCP Patient is a 28-year-old female who is here today in the emergency room seen and evaluated due to a right open ankle tib-fib fracture dislocation. She had a irrigation and closed reduction under conscious sedation in the ED. She was walking outside of her home today and slipped and fell directly onto her right ankle. She denies any other injuries. She denies any previous right ankle problems. Denies any numbness or tingling. She does have a lot of pain but since the reduction that has improved. She is currently out of work. She lives with her spouse. Allergies Allergy/AdvReac Type Severity Reaction Status Date / Time No Known Allergies Allergy Unknown Verified 09/01/23 17:35 Home Medications Medication Instructions Recorded Confirmed Type aripiprazole 2 mg tablet 2 mg PO HS 09/01/23 09/01/23 History atenolol 50 mg tablet 50 mg PO HS 09/01/23 09/01/23 History fluoxetine 20 mg capsule 60 mg PO HS 09/01/23 09/01/23 History lisinopril 5 mg tablet 5 mg PO HS 09/01/23 09/01/23 History Past Med/Surg History Social History (Updated 09/01/23 @ 18:01 by Natali Quiroga PA-C) Smoking Status: Current some day smoker Tobacco Type: E-cigarettes / Vaping Hx Substance Use: No Feels Safe at Home: Yes Review of Systems Review of Systems: Denies any lightheadedness dizziness, headaches, migraines, seizures or syncopal episodes. Denies any chest pain or shortness of breath. Denies any recent fevers, chills, cold symptoms or flulike symptoms. Denies any recent hospitalizations. Denies any abdominal pain, nausea, vomiting, diarrhea or constipation. Denies any history of blood clots or embolisms. Denies any history of latex allergy or MRSA. Denies any recent urinary tract infections. Denies any hearing or vision changes. Denies any dental problems. Physical Exam Constitutional: WD/WN, vitals as above Eyes: PERRL, conjunctivae normal, anicteric sclerae ENMT: external ear and nose normal, oropharynx normal Neck: trachea midline, no thyromegaly Respiratory: normal respiratory effort, lungs clear to auscultation Cardiovascular: RRR, no murmur, no edema Chest (Breasts): Chest: normal inspection of chest Gastrointestinal (Abdomen): normal bowel sounds, soft, nontender, no hepatosplenomegaly Musculoskeletal: Exam of her right lower extremity: Her right foot is externally rotated. Obvious open wound of the medial aspect of the ankle. Wound is about 4 cm x 3 cm with fatty tissue present. There is dirt and grass in the wound itself. This was cleansed with some sterile saline and irrigated under conscious sedation. Closed reduction was performed by Narinder Brunson PA-C. Distal pulses remained intact. Obvious deformity noted prior to reduction. Postreduction she was able to wiggle her toes, improved pain. Short leg posterior splint and coaptation splint was applied to the right lower extremity. Skin: Trauma: + evidence of skin trauma (Medial side of ankle. 4 to 5 cm x 3 cm open area to adipose tissue.) and + abrasion (Right anterior patel) Neurologic: patellar DTR's 2+ bilat, sensation intact and PERRL, EOMI, accommodation nl, no face palsy, no dysarthria Psychiatric: A+Ox3, euthymic affect Results & Data Results & Data Vital Signs (Past 12 Hours) Vital Signs Temp Pulse Pulse Resp BP BP Pulse Ox 09/01/23 17:47 102 H 16 143/94 H 95 09/01/23 17:30 102 H 16 142/82 H 99 09/01/23 17:09 98 H 16 145/77 H 99 09/01/23 16:50 97 H 16 176/78 H 99 09/01/23 16:45 100 H 16 179/77 H 99 09/01/23 16:40 99 H 16 145/93 H 98 09/01/23 16:39 102 H 16 98 09/01/23 16:35 106 H 16 150/87 H 98 09/01/23 16:34 102 H 16 98 09/01/23 16:33 100 H 16 98 09/01/23 16:26 98 H 17 154/91 H 98 09/01/23 15:34 96 H 16 136/68 98 09/01/23 15:06 90 09/01/23 14:05 36.6 C 90 20 148/61 H 99 O2 Del Method O2 Flow Rate 09/01/23 17:47 Room Air 09/01/23 17:30 Room Air 0 09/01/23 17:09 Room Air 0 09/01/23 16:50 Nasal Cannula 4 09/01/23 16:45 Nasal Cannula 4 09/01/23 16:40 Nasal Cannula 4 09/01/23 16:39 Nasal Cannula 4 09/01/23 16:35 Nasal Cannula 4 09/01/23 16:34 Nasal Cannula 4 09/01/23 16:33 Nasal Cannula 4 09/01/23 16:26 Nasal Cannula 4 09/01/23 15:34 Room Air 09/01/23 15:06 09/01/23 14:05 Room Air Laboratory Results 09/01/23 09/01/23 Range/Units 16:05 15:10 WBC 11.79 H (4.8-10.8) K/ul RBC 4.32 (4.20-5.40) M/uL Hgb 11.5 L (12.0-16.0) g/dl Hct 36.4 L (37.0-47.0) % MCV 84.3 (80.0-100.0) fL MCH 26.6 (25.0-34.0) pg MCHC 31.6 L (32.0-36.0) g/dL RDW Std Deviation 44.3 (36.4-46.3) fL RDW Coeff of [place] 14.6 H (11.5-14.5) % Plt Count 298 (130-400) K/uL MPV 9.2 L (9.4-12.4) fL Immature Gran % (Auto) 0.4 % Neut % (Auto) 71.4 % Lymph % (Auto) 19.8 % [place] % (Auto) 6.4 % Eos % (Auto) 1.8 % Baso % (Auto) 0.2 % Neut # (Auto) 8.43 H (1.40-6.50) K/uL Lymph # (Auto) 2.33 (1.20-3.40) K/uL [place] # (Auto) 0.75 H (0.11-0.59) K/uL Eos # (Auto) 0.21 (0.00-0.50) K/uL Baso # (Auto) 0.02 (0.00-0.20) K/uL Immature Gran # (Auto) 0.05 (0.01-0.20) K/uL PT 10.9 (9.0-12.0) Seconds INR 1.0 (0.9-1.1) APTT 25 (21-31) Seconds PTT Ratio 0.9 Sodium 137 (136-145) mmol/L Potassium 3.9 (3.5-5.1) mmol/L Chloride 104 (98-107) mmol/L Carbon Dioxide 26 (21-32) mmol/L Anion Gap 7 (3-11) BUN 8 (6-23) mg/dl Creatinine 0.52 L (0.6-1.2) mg/dl Est Cr Clr Drug Dosing 297.4 ml/min Est GFR ( Amer) > 150.0 ml/min Est GFR (Non-Af Amer) 130.0 ml/min BUN/Creatinine Ratio 15.4 (10-20) Glucose 100 H (70-99(Fasting)) mg/dl Calcium 8.0 L (8.6-10.3) mg/dl Total Bilirubin 0.4 (0.2-1.0) mg/dl AST 19 (13-39) U/L ALT 25 (7-52) U/L Alkaline Phosphatase 86 (34-104) U/L Total Protein 6.9 (6.0-8.3) gm/dl Albumin 3.5 (3.4-5.0) gm/dl Globulin 3.4 (2.5-4.0) gm/dl Albumin/Globulin Ratio 1.0 (0.9-2) HCG, Qual Negative (Negative) Diagnostic Findings XR tibia fibula RT 2V CLINICAL HISTORY: R lower leg injury, open fracture suspected TECHNIQUE: 2 radiographic views of the right leg were obtained. Comparison: None available at the time of this dictation. FINDINGS: A displaced fracture of the distal fibular shaft with angulation. There is a fracture of the posterior malleolus. Dislocation of the ankle joint is partially seen. Soft tissue swelling is seen. IMPRESSION: Fracture of the distal femoral shaft above the tibiofibular syndesmosis as well as of the posterior malleolus. Please see dedicated ankle radiographs for detailed findings of ankle fractures. XR ankle RT 2V CLINICAL HISTORY: Right ankle trauma. COMPARISON: None FINDINGS: There is an acute displaced fracture of the distal shaft of the right fibula. Fracture is 6.2 cm proximal to the fibular tip. The fibular fracture is displaced 1.4 cm and angulated. Note is made of acute displaced fractures of the posterior and medial malleoli of the right ankle. Talonavicular joint is disrupted. Talar dome is intact. No calcaneal fracture is identified. IMPRESSION: Right ankle fracture/dislocation deformity, as described above. Displaced posterior and medial malleolar fractures and distal diaphyseal fibular fracture with disruption of the tibiotalar joint. Supervising Physician Co-Signing Physician Notes I Dr. Cardenas, saw and examined the patient and agree with the above findings and plan of care I developed and discussed with my PA. Continue NPO. Discussed risks and benefits of I&D, ORIF Right ankle, informed consent signed. Plan OR tonight due to open fracture. Will admit after with 48 hrs IV Abx PT/OT. Will be NWB RLE. D/C Planning.
[2023-09-01] MEDS: ceFAZolin 3000MG 3,000 MG/72.5 ML BAG IV SCH (18:45)
[2023-09-01] MEDS: GELATIN SPONGE 12-7MM ONE (21:10)
[2023-09-01] MEDS: TRANEXAMIC ACID / 0.7% NACL 1000MG/100ML BAG IV ONE (21:10)
[2023-09-01] MEDS ORDERED: HYDROmorphone INJ 2 MG/ML SYR/VIAL ONE (22:28)
[2023-09-01] MEDS ORDERED: KETOROLAC 30 MG/ML VIAL ONE (22:28)
[2023-09-01] MEDS: BUPIVACAINE 0.5 % 5 MG/1 ML MPF 30ML VIAL ONE (22:40)
[2023-09-01] MEDS: LIDOCAINE 1%/EPINEPHRINE 1:100,000 20 ML VIAL ONE (22:41)
--- NOTE | 2023-09-01 23:11 | Post Operative Brief Note ---
Immediate Post Op Note v1 Date of Surgery September 01, 2023 Pre & Post Diagnosis Operation Date: 09/01/23 19:00 Pre-Op Diagnosis: Right ankle, open fracture disclocation Post-Op Diagnosis: Right ankle, open trimalleolar ankle fracture dislocation I identified the patient and participated in the time-out.: Yes Procedure Operation Date: 09/01/23 19:00 Actual Procedures p Irrigation and Debridement Right Ankle with Open Reduction Internal Fixation Bimalleolar Ankle Fracture and Closed Treatment of Posterior Malleolar Fracture (Right) - Mesfin Cardenas MD Surgeon Mesfin Cardenas MD Leadership Development Consultant Jadiel Quiroga PA-C (No fellow avail) Estimated Blood Loss 60 Findings Consistent with Post-Op Diagnosis Fluids 2000 ml Drains Sotelo Catheter (Inserted prior to procedure start by Diane Mina RN; 10cc in balloon; clear, yellow urine returned) Anesthesia Type General Regional Complications none
--- NOTE | 2023-09-01 23:13 | Operative Report ---
Post Operative Report Pre & Post Diagnosis Operation Date: 09/01/23 19:00 Pre-Op Diagnosis: Right ankle, open fracture disclocation Post-Op Diagnosis: Right ankle, open trimalleolar ankle fracture dislocation I identified the patient and participated in the time-out.: Yes Procedure Operation Date: 09/01/23 19:00 Actual Procedures p Irrigation and Debridement Right Ankle with Open Reduction Internal Fixation Bimalleolar Ankle Fracture and Closed Treatment of Posterior Malleolar Fracture (Right) - Mesfin Cardenas MD Surgeon Mesfin Cardenas MD Drencher Jadiel Quiroga PA-C (No fellow avail) Estimated Blood Loss 60 Findings See Below 5 cm open medial wound, clean contaminated. Displaced Trimalleolar right ankle fracture. Comminuted fibula and medial malleolar fractures. Fluids 2000 ml Specimens n/a Anesthesia Type General Regional Complications none Indications The patient is a 28 year old female who injured their right ankle falling on a ramp sustaining an open fracture dislocation of the ankle. The patient and their family understands the risks of surgery, which include but are not limited to: bleeding, infection, re-operation, damage to nerves and arteries, continued pain, loss of reduction, hardware failure, the need for repeat surgery, decrease level of activity, and DVT. The patient and their family understand all of these instructions and explanations, all of their questions have been satisfact orily addressed. The patient and their family have elected to proceed with emergent surgery and the informed consent was signed. Description of Procedure IMPLANTS: 1) 8 hole, Straight locking plate (Arthrex). 2) 3.5 mm locking screws (12 mm x 3, 14 mm x 3). 3) 4.0 mm short thread cannulated screws (38 & 40 mm),medial Mal. 4) 3.5 mm Cortical screw (12 mm) Jadiel Quiroga PA-C is assisting with positioning, retraction, closure, and splinting due to fellow not available. PROCEDURE: The patient was taken to the Operating Room and placed in the supine position on the operating table. After general anesthetic was administered a multidisciplinary time-out was performed identifying the patient my initials on the right limb as the correct and operative limb. Prior to the incision being made, 2 grams of intravenous Ancef were given. The right leg was prepped and draped in the standard fashion. The distal fibula was marked as well as the planned incision centered about the fracture and distal fibula 10 cm in length. The medial wound was planned to be extended distally from posterior aspect of the wound approximately 5 cm. The planned incisions were injected with a 50:50 mixture of 1% lidocaine and 0.5 % Marcaine with epi for a total of 16 cc. The planned medial incision was extended and the edges that were devitalized was excised. The wound was copiously irrigated with 6 L normal saline. The planned incision was made and carried down to the fibula. The fracture site was easily identified as there was a tear in the fascia. The Superficial Peroneal nerve was identified approximately 7cm proximal to the tip of fibula and was dissected and protected throughout the case. The fracture site was debrided with copious irrigation, dental pick, and rongeur, removing any soft tissue and hematoma. Using a lion jaw reduction clamp on the distal fragment and a pointed reduction clamp the fracture was reduced. A K-wire was used to tentatively hold the fracture. The 8-hole Straight locking plate fit the posterior distal fibula and held in place by be-be tacks and Faberge. A proximal non-locking screw was placed through the oblong hole in the plate and locking screws were placed in the remaining proximal holes and distal holes near the fracture site, leaving the distal 2 holes for placement of syndesmotic fixation if necessary. Our attention was drawn to the medial malleolus. The fracture was easily identified. The periosteum was removed from the fracture site. The fracture site was debrided with copious irrigation, dental pick, and rongeur, removing any soft tissue and hematoma. Using a dental pick to reduce the medial malleolus 2 parallel K-wires were placed. Two 4.0 cannulated screws were placed in the standard fashion by drilling the outer cortex prior to placing the screws. Fluoroscopy was used throughout the case to ensure proper reduction and placement of hardware. The comminuted fragment was manually reduced and the periosteum was sutured to secure in place. Testing via external rotation testing and cotton testing showed the syndesmosis to be reduced and stable. The wounds were copiously irrigated. Final x-rays were obtained, not only showing the bi-mal fracture and hardware well reduce and in good position, but also showed that the posterior mal fracture was indirectly reduced nearly anatomically. The fascia over the plate was closed with 2-0 Vicryl and the subcutaneous layer were closed with 3-0 Vicryl. The skin was closed with Mary. The periosteum over the medial mal fracture was closed with 2-0 Vicryl. The medial wound and incision were closed with 2-0 and 3-0 Prolene. The sponge and needle counts were correct. The wounds were covered with Xeroform, 4x4's, ABD's, Steril cast padding, and an AO splint was placed. The patient was awakened and taken to the recovery room in stable condition. Post-op Instructions: The patient was admitted for 48 hours due to open fracture and will continue antibiotics. The patient will remain NWB while in the splint. Continue pain control. PT/OT will be initiated. Discharge planning. The patient will follow up in Dr. Killian office in 7 days. I attest to the content of the Intraoperative Record and any orders documented therein. Any exceptions are noted below.
--- NOTE | 2023-09-01 23:27 | Operative Report ---
Post Operative Report Pre & Post Diagnosis Operation Date: 09/01/23 19:00 Pre-Op Diagnosis: Right ankle, open fracture disclocation Post-Op Diagnosis: Right ankle, open trimalleolar ankle fracture dislocation I identified the patient and participated in the time-out.: Yes Procedure Operation Date: 09/01/23 19:00 Actual Procedures p Irrigation and Debridement Right Ankle with Open Reduction Internal Fixation Bimalleolar Ankle Fracture and Closed Treatment of Posterior Malleolar Fracture (Right) - Mesfin Cardenas MD Surgeon Mesfin Cardenas MD Portrait Painter Jadiel Quiroga PA-C (No fellow avail) Estimated Blood Loss 60 Findings Consistent with Post-Op Diagnosis Trimalleolar fracture Specimens None Anesthesia Type General Regional Description of Procedure Patient was taken to the operating room and placed under general anesthesia. She is given a peripheral popliteal nerve block preoperatively. She was given 3 g of IV Ancef for surgical prophylaxis and 1 g of TXA for surgical prophylaxis. Time out was performed. She was prepped and draped in routine sterile fashion. I was present during the entire case and assisted with positioning, tissue retraction, reduction of fracture, implantation of hardware, closure, splinting and dressings. Please see Dr. Cardenas's operative report for further details regarding today's procedure. Patient was awakened and transferred to the recovery room in stable condition. I attest to the content of the Intraoperative Record and any orders documented therein. Any exceptions are noted below.
--- NOTE | 2023-09-02 00:03 | Anesthesiology Progress Note ---
Date of Service September 02, 2023 Anesthesia Post Procedure Vital Signs Vital Signs: Temp Pulse Pulse Resp BP BP Pulse Ox 09/01/23 23:47 100.2 F H 105 H 18 144/84 H 94 09/01/23 23:38 100.0 F H 110 H 20 166/86 H 96 09/01/23 23:26 98.2 F 110 H 18 162/89 H 100 09/01/23 18:25 100.2 F H 111 H 26 H 135/82 97 09/01/23 18:23 09/01/23 17:47 102 H 16 143/94 H 95 09/01/23 17:30 102 H 16 142/82 H 99 09/01/23 17:09 98 H 16 145/77 H 99 09/01/23 16:50 97 H 16 176/78 H 99 09/01/23 16:45 100 H 16 179/77 H 99 09/01/23 16:40 99 H 16 145/93 H 98 09/01/23 16:39 102 H 16 98 09/01/23 16:35 106 H 16 150/87 H 98 09/01/23 16:34 102 H 16 98 09/01/23 16:33 100 H 16 98 09/01/23 16:26 98 H 17 154/91 H 98 09/01/23 15:34 96 H 16 136/68 98 09/01/23 15:06 90 09/01/23 14:05 97.9 F 90 20 148/61 H 99 O2 Del Method O2 Flow Rate 09/01/23 23:47 Nasal Cannula 3 09/01/23 23:38 Nasal Cannula 09/01/23 23:26 Oxymask 10 09/01/23 18:25 Room Air 09/01/23 18:23 Room Air 09/01/23 17:47 Room Air 09/01/23 17:30 Room Air 0 09/01/23 17:09 Room Air 0 09/01/23 16:50 Nasal Cannula 4 09/01/23 16:45 Nasal Cannula 4 09/01/23 16:40 Nasal Cannula 4 09/01/23 16:39 Nasal Cannula 4 09/01/23 16:35 Nasal Cannula 4 09/01/23 16:34 Nasal Cannula 4 09/01/23 16:33 Nasal Cannula 4 09/01/23 16:26 Nasal Cannula 4 09/01/23 15:34 Room Air 09/01/23 15:06 09/01/23 14:05 Room Air Pain Intensity Right Leg: Pain Intensity: 5 Transfer of Care Handoff Completed per policy Notes Mental Status: alert / awake / arousable and participated in evaluation Patient Amnestic to Procedure: Yes Nausea / Vomiting: adequately controlled Pain: adequately controlled Airway Patency, RR, SpO2: stable & adequate BP & HR: stable & adequate Hydration State: stable & adequate Anesthetic Complications: no major complications apparent and Pt Satisfied with anesthetic care
[2023-09-02] MEDS ORDERED: diphenhydrAMINE Capsule 25 MG CAP PO PRN (00:13)
[2023-09-02] MEDS ORDERED: HYDROmorphone INJ 0.5 MG/0.5 ML SYR IV PRN (00:13)
[2023-09-02] MEDS ORDERED: bisacodyL 10 MG SUPP PR PRN (00:13)
[2023-09-02] MEDS ORDERED: HYDROmorphone INJ 1 MG/ML SYRINGE IV PRN (00:13)
[2023-09-02] MEDS ORDERED: MAGNESIUM HYDROXIDE SUSP 30 ML UDC PO PRN (00:13)
[2023-09-02] MEDS ORDERED: ONDANSETRON INJ 2 MG/ML 2 ML VIAL IV PRN (00:13)
[2023-09-02] MEDS ORDERED: diphenhydrAMINE 50 MG/ML VIAL IV PRN (00:13)
[2023-09-02] MEDS ORDERED: NALOXONE HCL 0.4 MG/1 ML VIAL/CARP IV PRN (00:13)
[2023-09-02] MEDS: SODIUM CHLORIDE 0.9% 1,000 ML IV SCH (01:09)
[2023-09-02] MEDS: ceFAZolin 2000MG 2,000 MG/15 ML SYR IV SCH (01:12)
[2023-09-02] MEDS: oxyCODONE HCL IR 5 MG TAB (IMMEDIATE RELEASE) PO PRN (05:22)
[2023-09-02] MEDS: ACETAMINOPHEN 500 MG TAB PO SCH (05:23)
--- NOTE | 2023-09-02 07:31 | Fluoroscopy Report ---
FL ankle RT min 3V RTN CLINICAL HISTORY: RT TIB/FIB ORIF TECHNIQUE: 3 views were obtained with the C-arm in the OR with the above procedure. Total fluoroscopy time was 40 seconds. Radiation dose was 1.10 mGy. Comparison: Comparison is made to ankle radiograph 09/01/2023 FINDINGS/IMPRESSION: Intraoperative images were obtained of right ankle open reduction internal fixat ion. Please correlate with intraoperative fluoroscopy and operative report. ACT 112: Negative or not required by law. Electronically signed by: Francisco Fatima M.D. 09/02/2023 7:30 AM
--- NOTE | 2023-09-02 08:18 | Orthopedic Progress Note ---
Date of Service September 02, 2023 Assessment & Plan (1) Open fracture dislocation of right ankle: Plan: POD 1 - Status post irrigation, debridement, ORIF right open trimalleolar ankle fracture May be out of bed, with assistance. Walker. Crutches if safe. Nonweightbearing right lower extremity at all times. Keep splint on at all times. Keep it clean and dry. Regular diet as ordered. Home medications continued. Physical therapy and Occupational Therapy to start today. Ice to right ankle as needed for pain and swelling. Elevate right lower extremity above heart to relieve pain and swelling. Continue IV Ancef every 8 hours due to open fracture x 48 hours. Aspirin 325 mg p.o. twice daily for 6 weeks after surgery. To start this morning. Teds and AV impulse boots on left lower extremity for DVT prophylaxis while in house. Will plan for dressing change and evaluation of open wound on 09/03/2023. Dr. Cardenas present for today's visit. Patient understands and agrees with the plan. Case management for disposition needs. Admission and Anticipated Discharge Date Admission Date: September 01, 2023 Subjective Patient is resting in bed. Right leg is elevated on 3 pillows. Able to wiggle her toes. Feels comfortable and denies significant pain in her right ankle. States that she feels better today than she did yesterday. Denies any po stoperative nausea, vomiting, lightheadedness, dizziness, chest pains or shortness of breath. Physical Exam Musculoskeletal: Exam of right lower extremity: Splint is intact. He is clean and dry. Right leg is elevated on 3 pillows. Able to wiggle toes. Normal sensation throughout right lower extremity. Capillary refill is brisk. Results & Data Vital Signs (Past 12 Hours) Vital Signs Temp Pulse Pulse Resp BP Pulse Ox O2 Del Method 09/02/23 07:56 36.6 C 97 H 17 138/80 99 Room Air 09/02/23 03:05 36.8 C 101 H 18 134/78 93 Nasal Cannula 09/02/23 02:05 36.6 C 109 H 18 145/88 H 96 Nasal Cannula 09/02/23 01:05 37.4 C 104 H 18 153/81 H 95 Nasal Cannula 09/02/23 00:35 37 C 95 H 18 142/74 H 96 Nasal Cannula 09/02/23 00:05 Nasal Cannula 09/02/23 00:05 37.4 C 103 H 20 129/72 96 Nasal Cannula 09/01/23 23:47 37.9 C H 105 H 18 144/84 H 94 Nasal Cannula 09/01/23 23:38 37.8 C H 110 H 20 166/86 H 96 Nasal Cannula 09/01/23 23:26 36.8 C 110 H 18 162/89 H 100 Oxymask O2 Flow Rate 09/02/23 07:56 3 09/02/23 03:05 2 09/02/23 02:05 3 09/02/23 01:05 3 09/02/23 00:35 3 09/02/23 00:05 3 09/02/23 00:05 3 09/01/23 23:47 3 09/01/23 23:38 09/01/23 23:26 10 Laboratory Results 09/01/23 09/01/23 Range/Units 16:05 15:10 WBC 11.79 H (4.8-10.8) K/ul RBC 4.32 (4.20-5.40) M/uL Hgb 11.5 L (12.0-16.0) g/dl Hct 36.4 L (37.0-47.0) % MCV 84.3 (80.0-100.0) fL MCH 26.6 (25.0-34.0) pg MCHC 31.6 L (32.0-36.0) g/dL RDW Std Deviation 44.3 (36.4-46.3) fL RDW Coeff of [place] 14.6 H (11.5-14.5) % Plt Count 298 (130-400) K/uL MPV 9.2 L (9.4-12.4) fL Immature Gran % (Auto) 0.4 % Neut % (Auto) 71.4 % Lymph % (Auto) 19.8 % [place] % (Auto) 6.4 % Eos % (Auto) 1.8 % Baso % (Auto) 0.2 % Neut # (Auto) 8.43 H (1.40-6.50) K/uL Lymph # (Auto) 2.33 (1.20-3.40) K/uL [place] # (Auto) 0.75 H (0.11-0.59) K/uL Eos # (Auto) 0.21 (0.00-0.50) K/uL Baso # (Auto) 0.02 (0.00-0.20) K/uL Immature Gran # (Auto) 0.05 (0.01-0.20) K/uL PT 10.9 (9.0-12.0) Seconds INR 1.0 (0.9-1.1) APTT 25 (21-31) Seconds PTT Ratio 0.9 Sodium 137 (136-145) mmol/L Potassium 3.9 (3.5-5.1) mmol/L Chloride 104 (98-107) mmol/L Carbon Dioxide 26 (21-32) mmol/L Anion Gap 7 (3-11) BUN 8 (6-23) mg/dl Creatinine 0.52 L (0.6-1.2) mg/dl Est Cr Clr Drug Dosing 297.4 ml/min Est GFR ( Amer) > 150.0 ml/min Est GFR (Non-Af Amer) 130.0 ml/min BUN/Creatinine Ratio 15.4 (10-20) Glucose 100 H (70-99(Fasting)) mg/dl Calcium 8.0 L (8.6-10.3) mg/dl Total Bilirubin 0.4 (0.2-1.0) mg/dl AST 19 (13-39) U/L ALT 25 (7-52) U/L Alkaline Phosphatase 86 (34-104) U/L Total Protein 6.9 (6.0-8.3) gm/dl Albumin 3.5 (3.4-5.0) gm/dl Globulin 3.4 (2.5-4.0) gm/dl Albumin/Globulin Ratio 1.0 (0.9-2) HCG, Qual Negative (Negative)
[2023-09-02] MEDS: DOCUSATE SODIUM 100 MG CAP PO SCH (09:13)
[2023-09-02] MEDS: ASCORBIC ACID 500 MG TAB PO SCH (09:14)
[2023-09-02] MEDS: FERROUS GLUCONATE 324 MG TAB PO SCH (09:15)
[2023-09-02] MEDS: ASPIRIN 325 MG ECTAB PO SCH (09:15)
[2023-09-02] MEDS: MULTIVITAMIN TAB PO SCH (09:16)
[2023-09-02] MEDS: ATENOLOL 50 MG TABLET PO SCH (21:04)
[2023-09-02] MEDS: ARIPIprazole 1 MG/ML ORAL SOLN 150 ML BTL PO SCH (21:05)
[2023-09-02] MEDS: lisinopril 5 MG TAB PO SCH (21:05)
[2023-09-02] MEDS: FLUoxetine HCL 20 MG CAP PO SCH (21:06)
[2023-09-02] MEDS: SENNA 8.6 MG TAB PO SCH (21:07)
--- NOTE | 2023-09-03 11:22 | Orthopedic Progress Note ---
Date of Service September 03, 2023 Assessment & Plan (1) Open fracture dislocation of right ankle: Plan: POD 2 - Status post irrigation, debridement, ORIF right open trimalleolar ankle fracture May be out of bed, with assistance. Walker. Crutches if safe. Nonweightbearing right lower extremity at all times. Keep splint on at all times. Keep it clean and dry. Dressings were changed today and splint reapplied. Regular diet as ordered. Home medications continued. Physical therapy and Occupational Therapy to start today. Ice to right ankle as needed for pain and swelling. Elevate right lower extremity above heart to relieve pain and swelling. Continue IV Ancef every 8 hours due to open fracture x 48 hours. She just had her Ancef dose and will be discharged later today. Aspirin 325 mg p.o. twice daily for 6 weeks after surgery. To start this morning. Teds and AV impulse boots on left lower extremity for DVT prophylaxis while in house. Physical therapy and Occupational Therapy recommended inpatient rehab. Patient is uninsured and unable to pay [id number] for this. She would like to be discharged home. She does have a walker and wheelchair for use at home. Findings will be discussed with Dr. Cardenas. Plan for discharge to her home today with her . Discharge instructions have been provided. Will schedule follow-up appointments when appropriate. Patient understands and agrees with the plan. Case management for disposition needs. Admission and Anticipated Discharge Date Admission Date: September 01, 2023 Subjective Patient is resting in bed. She has been out of bed with physical therapy doing exercises. Her is present at bedside. He brings today with a walker and wheelchair. She denies any significant pain in her right ankle. She states at worst is a 4 out of 10. She has been able to wiggle her toes. She feels that she has good control of the ankle. Her pain is much less and when it was before surgery. She has been tolerating a regular diet. She denies any postoperative nausea, vomiting, lightheadedness or dizziness. She feels that she is able to go home today. Review of Systems Review of Systems: as per HPI. Physical Exam Musculoskeletal: Exam of her right lower extremity: Splint is clean, dry and intact. Dressings are also intact. She is ice in place and her leg is elevated on 2 pillows. She is able to wiggle her toes. Capillary fill is brisk. Sensation is normal. Dorsalis pedis pulses 1+. Her coaptation splint and postoperative dressings were removed today. We did leave the posterior splint in place. Her incisions were evaluated and were clean, dry and intact. She had some blood-tinged serous fluid drainage on the dressings from the medial wound. Her lateral wound is relatively dry with some scant bloody drainage. The incisions were redressed with Xeroform, 4 x 4 and an ABD pad. Incisions are clean, dry and intact. The medial incision has no evidence of active drainage. There is no underlying seroma or hematoma. The sutures are in place and intact. The skin edges are well-approximated. There is minimal edema. Skin abrasions around the open area are healing nicely with no evidence of purulence. No active drainage. Mild serous drainage on the [place]. There is no evidence of necrosis from the open wound. Is mildly tender with palpation. No significant edema of the lower leg or ankle. She is able to independently straight leg raise. She tolerates flexion of her knee. Results & Data Vital Signs (Past 12 Hours) Vital Signs Temp Pulse Resp BP Pulse Ox O2 Del Method 09/03/23 08:00 36.8 C 90 18 111/76 92 Room Air 09/02/23 23:26 37.1 C 86 18 111/68 96 Room Air
--- NOTE | 2023-09-03 11:38 | Discharge Summary ---
Date of Service September 03, 2023 Admission HPI Per Admitting Provider Patient is a 28-year-old female who is here today in the emergency room seen and evaluated due to a right open ankle tib-fib fracture dislocation. She had a irrigation and closed reduction under conscious sedation in the ED. She was walking outside of her home today and slipped and fell directly onto her right ankle. She denies any other injuries. She denies any previous right ankle problems. Denies any numbness or tingling. She does have a lot of pain but since the reduction that has improved. She is currently out of work. She lives with her spouse. Discharge Data Consultations 09/01/23 17:44 ED Decision to Admit Stat Procedures Performed Operation Date: 09/01/23 19:00 Actual Procedures s Irrigation and Debridement Right Ankle(Right) - Mesfin Cardenas MD p with Open Reduction Internal Fixation Bimalleolar Ankle Fracture and Closed Treatment of Posterior Malleolar Fracture (Right) - Mesfin Cardenas MD Hospital Course (1) Open fracture dislocation of right ankle: Patient was admitted to [facility] after sustaining a right open ankle fracture dislocation. She was urgently taken to the operating room on September 01, 2023 for an irrigation, debridement and open reduction internal fixation of her right ankle fracture dislocation. She was started on 3 g of IV Ancef which was continued for 48 hours after surgery due to her having an open fracture. Her surgery was performed with general anesthesia and a peripheral nerve block. She tolerated the procedure well. Intraoperative x-rays showed good alignment of the fracture. Postoperatively she was allowed out of bed with assistance, nonweightbearing right lower extremity at all times. A sugar-tong and posterior splint was applied to her right lower extremity. This was kept in place and advised to keep it dry. Postop day 1-she had physical therapy and Occupational Therapy. She was able to get out of bed and maintain nonweightbearing status with the assistance of a walker and transfer to a wheelchair. She was tolerating a regular diet. Did not have any postoperative nausea, vomiting, lightheadedness or dizziness. Did not develop any postoperative chest pain or shortness of breath. Her pain was well-controlled with Tylenol, oxycodone. She also had IV Dilaudid available to take as needed. She was started on aspirin 325 mg twice daily for DVT prophylaxis. Tacos stocking and AV impulse boot was applied to the left lower extremity while inpatient for DVT prophylaxis. Encouraged ice and elevation for swelling control. Encouraged knee, hip and toe range of motion. Distal pulses were remained in place. IV Ancef was continued. Home medications were continued. Physical therapy and Occupational Therapy recommended inpatient rehab. Case management was involved. She admitted to not having health insurance and was unable to go to rehab and pay [id number]. Arrangements were made for her to be discharged to home and her was able to obtain a walker and a wheelchair. Postop day 2-she had physical therapy and Occupational Therapy and did well out of bed and was deemed safe for discharge to home. Her postoperative splint and dressings were removed and new dressings were applied. Incisions were found to be clean, dry and intact. New dressings were applied. She was encouraged to remain nonweightbearing right lower extremity. She had a walker and wheelchair for use at home. Follow-up appointments have been made. Discharge instructions were reviewed. She knows to call with any further problems, questions or concerns. She was given oxycodone for postop pain control. She was also prescribed Keflex for a week after surgery for prevention of infection.
--- NOTE | 2023-09-05 11:31 | Coding Query ---
To promote full compliance with coding requirements relating to patient care, provider participation is requested in all cases of cosmetic maker uncertainty. Please assist us with the question(s) below: Coding Question(s): The diagnosis below was documented in the Anesthesia Record under Significant HX, then subsequently fell off all further documentation. Please indicate if it is still a possible diagnosis or ruled out. Physician's Response(s): MORBID OBESITY ( ) Diagnosed and POA ( ) Diagnosed and not POA ( ) Ruled out ( x ) Other (please specify) yes pt is morbidly obese. unsure what POA means MTDD
== END 2023-09-03 16:29 | disposition home or self-care (01) | DRG 464 ==
LOC: ED 14:16 → OR 18:23 → 3N 23:36